=== PATIENT | male | born 1945 | race Caucasian/White ===

== ENCOUNTER → 2020-01-03 | Outpatient (CLI) | payer MEDICARE, OTHER ==
[~2020-01-03] MED LIST: ASPI325 PO; CARV6.25 PO; FEXO180 PO; HYDMOR2 PO; LEVSOD25 PO; MULVIT PO; NIAC500ER PO; OXYACE5T PO; POTCHL10ER PO; POTCIT10 PO; PROM25 PO; RAMI2.5 PO; ROSU10TA PO; SPIR25 PO
== END | disposition home or self-care (01) ==
LOC: LAB 20:00 → LAB SHORT 20:00
DX: R35.0 Frequency of micturition (principal)
CPT/HCPCS: 87086

== ENCOUNTER 2023-04-09 10:31 | Emergency (ER) | payer MEDICARE, OTHER ==
[~2023-04-09] VITALS: Ht 177.8 cm; Wt 94.3 kg
[2023-04-09 11:06] LABS: Source, Urine Clean Catch
[2023-04-09 11:17] LABS: Appearance, Urine Hazy (Clear); Bilirubin, Urine Neg (Neg); Blood, Urine 5+ (Neg); Color, Urine Red (P-Yellow); Glucose Qualitative, Urine 4+ (Neg); Ketones, Urine 1+ (Neg); Leukocyte Esterase, Urine 2+ (Neg); Nitrite, Urine Pos (Neg); Protein, Urine 4+ (Neg); Specific Gravity, Urine 1.015 (1.003-1.022); Urobilinogen, Urine NORM (Normal)
[2023-04-09 11:21] LABS: Bacteria Mod /hpf; Red Blood Cells, Urine TNTC /hpf (0-2); Squamous Epithelial Cells Not Seen /hpf (Few)
[2023-04-09] MEDS ORDERED: CLOP75 PO (11:39)
[2023-04-09 12:35] LABS: Source, Urine Foley catheter
[2023-04-09 12:39] LABS: Bilirubin, Urine Neg (Neg); Blood, Urine 5+ (Neg); Glucose Qualitative, Urine 4+ (Neg); Ketones, Urine 1+ (Neg); Leukocyte Esterase, Urine 1+ (Neg); Nitrite, Urine Neg (Neg); Protein, Urine 4+ (Neg); Urobilinogen, Urine NORM (Normal); pH, Urine 6.5 (5.0-8.0)
[2023-04-09 12:47] LABS: Appearance, Urine Bloody (Clear); Color, Urine Red (P-Yellow)
[2023-04-09 12:48] LABS: Bacteria Rare /hpf; Red Blood Cells, Urine TNTC /hpf (0-2); Squamous Epithelial Cells Rare /hpf (Few)
[2023-04-09] MEDS ORDERED: CEFP200 PO (13:36)
[2023-04-09 13:50] VITALS: BP 117/58
== END 2023-04-09 13:56 | disposition home or self-care (01) ==
LOC: ER 10:31
PROVIDERS: Emergency Medicine; Student in an Organized Health Care Education/Training Program
DX: T83.518A Infection and inflammatory reaction due to other urinary catheter, initial encounter (principal); R31.9 Hematuria, unspecified; X58.XXXA Exposure to other specified factors, initial encounter; Z79.2 Long term (current) use of antibiotics; Z79.890 Hormone replacement therapy; Z79.82 Long term (current) use of aspirin; Z79.02 Long term (current) use of antithrombotics/antiplatelets; Z79.899 Other long term (current) drug therapy; Z88.8 Allergy status to other drugs, medicaments and biological substances; I10 Essential (primary) hypertension; Z95.1 Presence of aortocoronary bypass graft; Z95.810 Presence of automatic (implantable) cardiac defibrillator
CPT/HCPCS: 81001; 87086; 99283-25; A9270

== ENCOUNTER 2025-08-14 01:09 | Observation (INO) | payer MEDICARE, OTHER ==
[~2025-08-14] VITALS: Ht 177.8 cm; Wt 106.6 kg
[~2025-08-14 01:09] MED LIST changes: -ASPI325 PO; +Aspir 8181 MG PO; +CEFP200 PO; +CLOP75 PO
[2025-08-14 01:23] LABS: BASOPHILS ABSOLUTE AUTO 0.03 K/mm3 (0.00-0.23); BASOPHILS PERCENT AUTO 0 % (0-2); EOSINOPHILS ABSOLUTE AUTO 0.11 K/mm3 (0.00-0.68); EOSINOPHILS PERCENT AUTO 2 % (0-6); Hematocrit 48.7 % (37.0-53.0); Hemoglobin 16.9 g/dL (13.5-17.5); IMMATURE GRAN ABSOLUTE AUTO 0.02 K/mm3 (0.00-0.10); IMMATURE GRAN PERCENT AUTO 0 % (0-1); LYMPHOCYTES ABSOLUTE AUTO 1.61 K/mm3 (0.84-5.20); LYMPHOCYTES PERCENT AUTO 22 % (21-46); MONOCYTES ABSOLUTE AUTO 0.55 K/mm3 (0.16-1.47); MONOCYTES PERCENT AUTO 8 % (4-13); Mean Corpuscular HGB Conc 34.7 g/dL (31.5-36.5); Mean Corpuscular Volume 95 fL (80-100); NEUTROPHILS ABSOLUTE AUTO 4.88 K/mm3 (1.96-9.15); NEUTROPHILS PERCENT AUTO 68 % (41-73); NRBC ABSOLUTE 0.00 K/mm3 (0.00-0.02); NRBC Auto 0.0 /100 WBC (0.0-0.2); Platelet Count 179 K/mm3 (150-400); RDW Coefficient Variation 12.9 % (11.7-14.2); RDW Standard Deviation 44.8 fL (35.1-46.3)
[2025-08-14 01:44] LABS: Alanine Aminotransfer (ALT/SGP 25.0 U/L (12-78); Albumin, Blood 4.0 g/dL (3.4-5.0); Albumin/Globulin Ratio 1.2 (0.8-1.8); Anion Gap 9.0 mmol/L (3-11); Aspartate Aminotrans (AST/SGOT 22.0 U/L (12-37); Bilirubin, Total 0.5 mg/dL (0.1-1.0); Blood Urea Nitrogen 24.0 mg/dL (8-24); CO2, Blood 26.0 mmol/L (21-32); Calcium, Blood 8.8 mg/dL (8.5-10.1); Chloride, Blood 107.0 mmol/L (98-108); Creatinine, Blood 1.01 mg/dL (0.60-1.20); Globulin, Blood 3.4 g/dL (2.2-4.0); Glucose, Blood 108.0 mg/dL (70-99); Magnesium, Blood 2.4 mg/dL (1.6-2.4); Potassium, Blood 4.0 mmol/L (3.5-5.5); Sodium, Blood 138.0 mmol/L (136-145); Total Protein, Blood 7.4 g/dL (6.4-8.2)
[2025-08-14] MEDS ORDERED: Ondansetron HCl 2 MG / ML 2ML Vial IV PRN (04:30)
[2025-08-14] MEDS ORDERED: FLU VACC TS2025(65UP)/MF59C/PF 45 MCG/0.5 ML SYRINGE IM SCH (04:35)
[2025-08-14 06:17] VITALS: BP 94/65
[2025-08-14] MEDS ORDERED: ATOR80 PO (06:32)
[2025-08-14] MEDS ORDERED: FISH OIL 1,0001 EA10 PO (06:32)
[2025-08-14] MEDS ORDERED: JARDIANCE10 MG PO (06:35)
[2025-08-14] MEDS ORDERED: METO25ER PO (06:35)
[2025-08-14] MEDS ORDERED: ENTRESTO 24 MG1 EACH PO (06:36)
[2025-08-14] MEDS ORDERED: FURO20 PO (06:36)
[2025-08-14] MEDS ORDERED: TIOT18 INH (06:36)
[2025-08-14] MEDS ORDERED: VITAMIN D325 MC3 PO (06:37)
[2025-08-14] MEDS ORDERED: BENADRYL25 MG PO (06:38)
[2025-08-14 07:23] VITALS: BP 103/58
--- NOTE | 2025-08-14 07:55 | NUR ---
KLAUS TO UNIT PT ARRIVED VIA ER AT 0610 FOR NEW ONSET CHEST PAIN. VSS. V-PACED @ 80 PER FUEL [employer]ER. PT DENIES CHEST PAIN/PRESSURE OR SOB AT THIS TIME. PT ORIENTED TO ROOM. CALL LIGHT WITHIN REACH.
[2025-08-14] MEDS ORDERED: Enoxaparin 40 MG/0.4 ML SYR SC SCH (09:00)
[2025-08-14 11:39] VITALS: BP 104/57
--- NOTE | 2025-08-14 15:15 | NUR ---
NOTIFIED DR. LINARES OF ATTEMPTED INTERROGATION OF PACEMAKER X2. DR. LINARES TOLD THIS RN TO NOTIFY DR. JOHNSON. DR. JOHNSON NOTIFIED AND HE VERBALIZED THAT PT COULD FOLLOW UP OUTPT AND HAVE PACEMAKER INTERROGATED THEN. NOTIFIED PRIMARY RN. PT TO DISCHARGE HOME TODAY.
--- NOTE | 2025-08-14 15:17 | NUR ---
Discharge instruction reviewed. Stated understanding. awaiting ride for final disposition.
== END 2025-08-14 15:19 | disposition home or self-care (01) ==
LOC: ER 01:09 → SURS 01:10 → ERHOLD 01:10 → SURS 06:00
PROVIDERS: Student in an Organized Health Care Education/Training Program; ADMIT Student in an Organized Health Care Education/Training Program
DX: R07.89 Other chest pain (principal); I25.10 Atherosclerotic heart disease of native coronary artery without angina pectoris; I25.2 Old myocardial infarction; I77.810 Thoracic aortic ectasia; I11.0 Hypertensive heart disease with heart failure; I50.22 Chronic systolic (congestive) heart failure; R79.89 Other specified abnormal findings of blood chemistry; J44.9 Chronic obstructive pulmonary disease, unspecified; Z95.0 Presence of cardiac pacemaker; Z79.02 Long term (current) use of antithrombotics/antiplatelets; Z79.82 Long term (current) use of aspirin; Z79.890 Hormone replacement therapy; Z79.899 Other long term (current) drug therapy; Z95.1 Presence of aortocoronary bypass graft; Z88.4 Allergy status to anesthetic agent; Z88.8 Allergy status to other drugs, medicaments and biological substances; Z85.028 Personal history of other malignant neoplasm of stomach; Z90.49 Acquired absence of other specified parts of digestive tract
CPT/HCPCS: 36415; 71046; 80053; 83690; 83735; 83880; 84484; 85025; 93005; 93010; 99285-25; A9270; C8929; G0378; J1650; Q9957